=== PATIENT | female | born 1955 | race Caucasian/White ===

== ENCOUNTER → 2019-06-04 13:30 | Outpatient (CLI) | payer BC, SELFPAY ==
--- NOTE | ~2019-06-04 | XR_ITS ---
EXAMINATION: XR foot LT 2V, XR ankle LT 2V EXAM DATE: 06/04/2019 14:16 INDICATION: No known recent injury provided at this time. Pain of the left foot, ankle. TECHNIQUE: Left foot frontal and lateral projections. Left ankle frontal and lateral projections. Co rrelation is made to contralateral foot and ankle same date. FINDINGS: There are small posterior and inferior left calcaneal spurs. There is mild polyarticular l eft foot primary osteoarthritis. There are no acute fractures or dislocations identified. There is n o subcutaneous gas. The soft tissue is unremarkable. There are no radiopaque foreign bodies. Ther e are no bony erosions identified. IMPRESSION: 1. Mild polyarticular left foot, ankle osteoarthritis. 2. Small calcaneal spurs. Reviewed, dictated and finalized at location B. IMPRESSION: 1. Mild polyarticular left foot, ankle osteoarthritis. 2. Small calcaneal spurs.
--- NOTE | ~2019-06-04 | XR_ITS ---
EXAMINATION: XR sacroiliac joints min 3V EXAM DATE: 06/04/2019 14:16 INDICATION: Pancreatic pain. TECHNIQUE: Sacroiliac joints frontal, bilateral oblique projections obtained. There is no prior nora dy for comparison. FINDINGS: There is mild symmetric bilateral sacroiliac joint primary osteoarthritis. Sacrum, sacroili ac joints, sacral arcuate lines are intact. No fusion of the joints. There is right hip arthroplasty . There is mild left hip. Mild to moderate lower lumbar spondylosis. primary osteoarthritis. IMPRESSION: 1. Mild sacroiliac and left hip osteoarthritis. Reviewed, dictated and finalized at location B.
--- NOTE | ~2019-06-04 | XR_ITS ---
EXAMINATION: XR wrist LT 2V, XR hand LT 2V EXAM DATE: 06/04/2019 14:16 INDICATION: No known recent injury provided at this time. Pain of the left hand, wrist. TECHNIQUE: Left hand frontal, lateral projections obtained and reviewed. Left wrist frontal, lateral projections obtained and reviewed. Correlation is made to contralateral hand same date. FINDINGS: Left metacarpal bones are unremarkable. Left wrist scapholunate joint space is maintained . There is minimal polyarticular primary osteoarthritis. There are no acute fractures or dislocations identified. There is no subcutaneous gas. The soft tissue is unremarkable. There are no radiopaq ue foreign bodies. There is moderate ulnar minus variance. IMPRESSION: 1. Minimal polyarticular left hand and wrist osteoarthritis. 2. Ulnar minus variance. Reviewed, dictated and finalized at location B. IMPRESSION: 1. Minimal polyarticular left hand and wrist osteoarthritis. 2. Ulnar minus variance.
--- NOTE | ~2019-06-04 | XR_ITS ---
EXAMINATION: XR foot RT 2V, XR ankle RT 2V EXAM DATE: 06/04/2019 14:16 INDICATION: No known recent injury provided at this time. Pain of the right foot and ankle. TECHNIQUE: Frontal and lateral projections right foot. Frontal and lateral projections right ankle. There is no prior study for comparison. FINDINGS: There is moderate right first metatarsophalangeal joint primary osteoarthritis. Otherwise mild polyarticular primary osteoarthritis. The ankle mortise appears intact. There are no acute fract ures or dislocations identified. There is no subcutaneous gas. The soft tissue is unremarkable. T here are no radiopaque foreign bodies. Small posterior and inferior calcaneal spurs. IMPRESSION: 1. Moderate right first MTP osteoarthritis. 2. Otherwise mild degenerative changes. Reviewed, dictated and finalized at location B. IMPRESSION: 1. Moderate right first MTP osteoarthritis. 2. Otherwise mild degenerative changes.
--- NOTE | ~2019-06-04 | XR_ITS ---
EXAMINATION: XR chest 2V EXAM DATE: 06/04/2019 14:16 INDICATION: Myalgia, fatigue. TECHNIQUE: Frontal and lateral projections of the chest obtained and reviewed. There is no prior nora dy for comparison. FINDINGS: Large right-sided epicardial fat pad. The lungs are clear. There are no pleural effusions . The cardiomediastinal silhouette is within normal limits. There is no pneumothorax suspected. Th e bones and soft tissues are unremarkable. IMPRESSION: Unremarkable chest x-ray exam. Reviewed, dictated and finalized at location B.
--- NOTE | ~2019-06-04 | XR_ITS ---
EXAMINATION: XR wrist RT 2V, XR hand RT 2V EXAM DATE: 06/04/2019 14:16 INDICATION: No known recent injury provided at this time. Pain of the right hand and wrist. TECHNIQUE: Right hand frontal, lateral projections obtained and reviewed. Right wrist frontal, latera l projections obtained and reviewed. There is no prior study for comparison. FINDINGS: Right metacarpal bones are unremarkable. Right wrist scapholunate joint space is maintain ed. There are no bony erosions identified. There is minimal polyarticular hand and wrist primary ost eoarthritis. There are no acute fractures or dislocations identified. There is no subcutaneous gas. The soft tissue is unremarkable. There are no radiopaque foreign bodies. There is mild ulnar taz s variance. IMPRESSION: 1. Minimal polyarticular right hand and wrist osteoarthritis. 2. Ulnar minus variance. Reviewed, dictated and finalized at location B. IMPRESSION: 1. Minimal polyarticular right hand and wrist osteoarthritis. 2. Ulnar minus variance.
== END ==
PROVIDERS: PCP Internal Medicine; Visit Provider Internal Medicine Rheumatology
DX: M79.10 Myalgia, unspecified site (principal); R53.81 Other malaise; R53.83 Other fatigue; M77.32 Calcaneal spur, left foot; M19.071 Primary osteoarthritis, right ankle and foot; M19.072 Primary osteoarthritis, left ankle and foot; M16.12 Unilateral primary osteoarthritis, left hip; M53.3 Sacrococcygeal disorders, not elsewhere classified
CPT/HCPCS: 71046; 72202; 73100; 73120; 73600; 73620